=== PATIENT | female | born 1975 | race Caucasian/White ===

== ENCOUNTER → 2017-09-11 14:57 | Outpatient (CLI) | payer BC, SELFPAY ==
[2017-09-11 15:30] LABS: Basophils % 0.7 % (0.1-2.0); Eosinophils % 0.2 % (0.1-12.0); Hematocrit 42.1 % (37.0-47.0); Hemoglobin 13.6 g/dL (12.2-16.2); Lymphocytes # 2.5 K/mm3 (0.7-4.5); Lymphocytes % 47.8 K/mm3 (10-50); Mean Corpuscular HGB Conc 32.3 g/dL (31.8-35.4); Mean Corpuscular Hemoglobin 29.3 pg (27.0-31.2); Mean Corpuscular Volume 90.9 fl (81-99); Monocytes # 0.2 K/mm3 (0.1-1.0); Monocytes % 4.2 % (1.7-9.3); Neutrophils # 2.4 K/mm3 (1.8-7.8); Neutrophils % 47.2 % (37.0-80.0); Platelet Count 183 K/mm3 (142-424); Red Blood Count 4.63 M/mm3 (4.20-5.40); Red Cell Distribution Width 12.4 % (11.5-17.5); White Blood Count 5.1 K/mm3 (4.8-10.8)
[2017-09-11 15:39] LABS: INR 0.94 (0.9-1.1); Prothrombin Time 10.2 seconds (9.4-11.8)
[2017-09-11 15:44] LABS: Urine Pregnancy, HCG Qual. Negative (Negative)
[2017-09-11 16:43] LABS: Alanine Aminotransferase 17 U/L (12-78); Albumin Level 3.6 gm/dL (3.4-5.0); Albumin/Globulin Ratio 1.1 (1.1-1.8); Alkaline Phosphatase 56 U/L (46-116); Aspartate Amino Transferase 11 U/L (15-37); Bilirubin,Total 0.2 mg/dL (0.2-1.0); Blood Urea Nitrogen 10 mg/dL (7-18); Calcium 8.5 mg/dL (8.5-10.1); Carbon Dioxide 27 mmol/L (21.0-32.0); Chloride 103 mmol/L (98-107); Creatinine,Serum 0.73 mg/dL (0.55-1.02); Estimated Glomerular Filt Rate 87 ml/min (>60); GFR (African American) 105 ML/MIN (>60); Globulin 3.3 gm/dl (1.3-3.2); Glucose 75 mg/dL (74-106); Sodium 138 mmol/L (136-145); Total Protein,Serum 6.9 gm/dL (6.4-8.2)
== END ==
PROVIDERS: PCP Nurse Practitioner Family; Visit Provider Internal Medicine Gastroenterology
DX: B19.20 Unspecified viral hepatitis C without hepatic coma (principal); B18.2 Chronic viral hepatitis C
CPT/HCPCS: 36415; 80053; 81025; 85025; 85610; 87522

== ENCOUNTER 2017-09-13 11:45 | Emergency (ER) | payer OTHER, BC, SELFPAY ==
[2017-09-13 12:04] VITALS: BP 121/91; PULSE 78; RESP 20; TEMP 36.8; O2SAT 99; BMI 23.4
--- NOTE | 2017-09-13 12:19 | PC.NURSE ---
Kira Piper contacting [facility] recreation program coordinator at this time
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
[2017-09-13 12:21] VITALS: BP 142/94; PULSE 75; RESP 18; TEMP 36.9; O2SAT 98; BMI 20.7
--- NOTE | 2017-09-13 12:21 | PC.NURSE ---
Dr. Rivera speaking with Shira at , store operations specialist
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
[2017-09-13 12:25] VITALS: BMI 23.4
--- NOTE | 2017-09-13 12:30 | PC.NURSE ---
Face sheet faxed to [facility] admissions at this time
--- NOTE | 2017-09-13 12:32 | PC.NURSE ---
[facility] at bedside
--- NOTE | 2017-09-13 12:39 | PC.NURSE ---
1222- ACCEPTING MD AT ED.
[2017-09-13 12:40] LABS: POC Glucose,Bedside 91 mg/dL (70-110)
[2017-09-13 12:51] VITALS: BP 119/75; PULSE 76; RESP 18; TEMP 36.9; O2SAT 100
== END 2017-09-13 13:02 | disposition short-term general hospital (02) ==
LOC: UTC 12:02 → ER 12:14
PROVIDERS: Nurse Practitioner; Emergency Provider Emergency Medicine; PCP Nurse Practitioner Family
DX: S09.90XA Unspecified injury of head, initial encounter (principal); S20.411A Abrasion of right back wall of thorax, initial encounter; V89.2XXA Person injured in unspecified motor-vehicle accident, traffic, initial encounter; F17.210 Nicotine dependence, cigarettes, uncomplicated
CPT/HCPCS: 71045; 72170; 82962; 99283

== ENCOUNTER → 2022-02-24 14:15 | Outpatient (CLI) | payer OTHER, SELFPAY ==
[2022-02-24 15:40] LABS: Basophils # 0.1 K/mm3 (0-0.2); Basophils % 1.1 % (0.1-2.0); Eosinophils # 0.1 K/mm3 (0.0-0.4); Hematocrit 40.1 % (37.0-47.0); Hemoglobin 12.9 g/dL (12.2-16.2); Lymphocytes # 2.5 K/mm3 (0.7-4.5); Mean Corpuscular HGB Conc 32.2 g/dL (31.8-35.4); Mean Platelet Volume 8.5 fl (7.4-10.4); Monocytes # 0.3 K/mm3 (0.1-1.0); Monocytes % 4.7 % (1.7-9.3); Neutrophils # 2.9 K/mm3 (1.8-7.8); Neutrophils % 50.1 % (37.0-80.0); Platelet Count 217 K/mm3 (142-424); Red Blood Count 4.31 M/mm3 (4.20-5.40); Red Cell Distribution Width 13.2 % (11.5-17.5); White Blood Count 5.9 K/mm3 (4.8-10.8)
[2022-02-24 16:09] LABS: Alanine Aminotransferase 12 U/L (12-78); Albumin Level 3.9 g/dl (3.5-5.0); Albumin/Globulin Ratio 1.5 (1.1-1.8); Alkaline Phosphatase 66 U/L (38-126); Anion Gap 8.8 mEq/L (5-15); Aspartate Amino Transferase 24 U/L (14-36); Bilirubin,Direct 0.3 mg/dl (0.0-0.4); Bilirubin,Indirect 0.3 mg/dL (0.0-0.9); Bilirubin,Total 0.6 mg/dl (0.2-1.3); Bilirubin,Unconjugated 0.3 mg/dL (0.0-1.1); Blood Urea Nitrogen 14 mg/dl (7-17); Calcium 8.9 mg/dl (8.4-10.2); Carbon Dioxide 25 mmol/L (22.0-30.0); Chloride 110 mmol/L (98-107); Estimated Glomerular Filt Rate 44 ml/min (>60); GFR (African American) 53 ML/MIN (>60); Globulin 2.6 g/dL (1.3-3.2); Glucose 93 mg/dl (74-100); Potassium 3.8 mmoL/L (3.5-5.1); Sodium 140 mmol/L (136-145); Total Protein,Serum 6.5 g/dl (6.3-8.2)
[2022-02-24 16:37] LABS: Thyroid Stimulating Hormone 0.19 uIU/mL (0.465-4.68)
[2022-02-24 16:56] LABS: Vitamin B12 762 pg/mL (239-931)
[2022-02-26 07:14] LABS: HIV Screen 4th Generation wRfx Non Reactive (Non Reactive)
[2022-02-26 09:12] LABS: Estradiol 10.1 pg/mL (.); FSH 81.2 mIU/mL (.); LH 52.7 mIU/mL (.); Triiodothyronine (T3) Free 2.7 pg/mL (2.0-4.4)
[2022-03-04 22:35] LABS: Hep A Ab, IgM Negative; Hepatitis B Core Antibody IgM Negative; Hepatitis B Surface Antigen Negative; Hepatitis C Antibody >11.0
== END ==
PROVIDERS: PCP Nurse Practitioner Family; Visit Provider Emergency Medicine
DX: F11.20 Opioid dependence, uncomplicated (principal); E03.9 Hypothyroidism, unspecified; E53.8 Deficiency of other specified B group vitamins; N91.2 Amenorrhea, unspecified; Z11.4 Encounter for screening for human immunodeficiency virus [HIV]
CPT/HCPCS: 36415; 80053; 80074; 80076; 82607; 82670; 83001; 83002; 84439; 84443; 84481; 85025; 86703; G0432